=== PATIENT | male | born 1960 | race African-American/Black ===

== ENCOUNTER 2018-12-28 05:07 | Inpatient (IN) | payer MEDICAID ==
[~2018-12-28] VITALS: Ht 170.2 cm; Wt 92.5 kg
[2018-12-28] MEDS ORDERED: ASPIRIN 81MG TABLET PO ONE (06:30)
[2018-12-28 06:59] LABS: BASOPHILS % 0.6 % (0.0-2.0); HEMATOCRIT. 38.5 % (42.0-52.0); HEMOGLOBIN. 12.8 g/dL (14.0-18.0); LYMPHOCYTES % 21.2 % (20.0-50.0); MEAN CORPUSCULAR HEMOGLOBIN 28.3 pg (28.0-32.0); MEAN CORPUSCULAR VOLUME 85.1 fL (80.0-94.0); MEAN PLATELET VOLUME 7.8 fl (7.4-10.4); MONOCYTES % 7.2 % (2.0-8.0); PLATELET 255 x1000/uL (130-400); RED BLOOD CELL COUNT 4.52 mill/uL (4.7-6.1); RED CELL DISTRIBUTION WIDTH 15.9 % (11.6-14.6)
[2018-12-28 07:04] LABS: CHLORIDE 107 mEq/L (98-107)
[2018-12-28 07:30] LABS: D-DIMER 1.52 mg/L FEU (<0.50); INR 1.2; PARTIAL THROMBOPLASTIN TIME 27.4 sec (23.4-31.0); PROTHROMBIN TIME 12.1 sec (9.6-11.0)
[2018-12-28] MEDS ORDERED: MAGNESIUM/ALUMINUM HYDROXIDE/SIMETHICONE 30ML UDC PO PRN (09:15)
[2018-12-28] MEDS ORDERED: DIPHENHYDRAMINE 50MG/ML VIAL IV PRN (09:15)
[2018-12-28] MEDS ORDERED: IPRATROPIUM/ALBUTEROL 0.5-3(2.5)MG/3ML NEB INH PRN (09:15)
[2018-12-28] MEDS ORDERED: DOCUSATE SODIUM 100MG CAPSULE PO PRN (09:15)
[2018-12-28] MEDS ORDERED: ONDANSETRON HCL 4MG/2ML INJ IV PRN (09:15)
[2018-12-28] MEDS ORDERED: ACETAMINOPHEN 325MG TABLET PO PRN (09:15)
[2018-12-28] MEDS ORDERED: HYDROCODONE/ACETAMINOPHEN 5/325MG TABLET PO PRN (09:15)
[2018-12-28] MEDS ORDERED: GUAIFENESIN 200MG/10ML SUGAR FREE UDC PO PRN (09:15)
[2018-12-28] MEDS ORDERED: CLONIDINE 0.1MG TABLET PO PRN (09:15)
[2018-12-28 09:22] LABS: PHOSPHORUS 3.8 mg/dL (2.5-4.9)
[2018-12-28] MEDS ORDERED: DEXTROSE 50% WATER 50ML SYRINGE IV PRN (09:30)
[2018-12-28] MEDS ORDERED: FUROSEMIDE 40MG/4ML VIAL IV ONE (09:45)
[2018-12-28] MEDS ORDERED: ENOXAPARIN 40MG/0.4ML SYR SUBCUT NR (09:45)
[2018-12-28] MEDS ORDERED: NITROGLYCERIN OINT 1GM/INCH UDPKT TD ONE (09:45)
[2018-12-28] MEDS ORDERED: IOHEXOL-350 100 ML BOTTLE ONE (10:29)
[2018-12-28 11:30] VITALS: BP 168/92
[2018-12-28 12:00] VITALS: BP 168/92
[2018-12-28] MEDS: BLOOD SUGAR DIAGNOSTIC STRIP TEST SCH ×3 (12:10→21:03)
[2018-12-28] MEDS: INSULIN LISPRO 100 UNITS/ML SUBCUT SCH ×3 (12:40→21:26)
[2018-12-28] MEDS ORDERED: CARV6.2548 MT (14:48)
[2018-12-28] MEDS ORDERED: TADA5TAB MT (14:48)
[2018-12-28] MEDS ORDERED: FURO40TA5 MT (14:48)
[2018-12-28] MEDS ORDERED: ASPI-1159 MT (14:48)
[2018-12-28] MEDS ORDERED: METF-414 MT (14:48)
[2018-12-28] MEDS ORDERED: ALBU18HF2 IH (14:48)
[2018-12-28] MEDS ORDERED: SPIR25TA6 MT (14:48)
[2018-12-28] MEDS ORDERED: LISI-604 MT (14:48)
[2018-12-28] MEDS ORDERED: ATOR20TA65 PO (14:48)
[2018-12-28 16:00] VITALS: BP 140/96
[2018-12-28] MEDS: NITROGLYCERIN OINT 1GM/INCH UDPKT TD SCH ×2 (16:03→21:08)
[2018-12-28 16:20] LABS: CREATINE KINASE 84 IU/L (39-308)
[2018-12-28 16:21] LABS: CREATINE KINASE MB FRACTION < 1.0 ng/mL (0.5-3.6)
[2018-12-28] MEDS: POTASSIUM CHLORIDE 20MEQ TABLET SR PO SCH (18:05)
[2018-12-28] MEDS: FUROSEMIDE 100MG/10ML VIAL IVP SCH (18:12)
[2018-12-28 20:00] VITALS: BP 129/81
[2018-12-28] MEDS: CARVEDILOL 6.25 MG TABLET PO SCH (21:08)
[2018-12-29] VITALS: BP 105/59
[2018-12-29 01:22] LABS: CREATINE KINASE 82 IU/L (39-308)
[2018-12-29 01:23] LABS: CREATINE KINASE MB FRACTION < 1.0 ng/mL (0.5-3.6)
[2018-12-29 04:00] VITALS: BP 113/65
[2018-12-29] MEDS: NITROGLYCERIN OINT 1GM/INCH UDPKT TD SCH ×2 (06:07→12:38)
[2018-12-29] MEDS: INSULIN LISPRO 100 UNITS/ML SUBCUT SCH ×3 (06:11→17:06)
[2018-12-29] MEDS: BLOOD SUGAR DIAGNOSTIC STRIP TEST SCH ×3 (06:11→16:51)
[2018-12-29 06:23] LABS: CHLORIDE 106 mEq/L (98-107)
[2018-12-29 06:30] LABS: BASOPHILS % 0.4 % (0.0-2.0); EOSINOPHILS % 2.8 % (0.0-5.0); HEMATOCRIT. 38.4 % (42.0-52.0); LYMPHOCYTES % 28.4 % (20.0-50.0); MEAN CORPUSCULAR HEMOGLOBIN 28.9 pg (28.0-32.0); MEAN CORPUSCULAR VOLUME 85.3 fL (80.0-94.0); MEAN PLATELET VOLUME 8.2 fl (7.4-10.4); MONOCYTES % 9.2 % (2.0-8.0); NEUTROPHILS % 59.2 % (40.0-76.0); PLATELET 264 x1000/uL (130-400); RED CELL DISTRIBUTION WIDTH 15.9 % (11.6-14.6)
[2018-12-29 06:41] LABS: LDL CHOLESTEROL 92 mg/dL (5-100)
[2018-12-29 06:43] LABS: HDL CHOLESTEROL 37 mg/dL (40-59)
[2018-12-29 08:00] VITALS: BP 109/66
[2018-12-29] MEDS: POTASSIUM CHLORIDE 20MEQ TABLET SR PO SCH ×2 (08:27→16:30)
[2018-12-29] MEDS: FUROSEMIDE 100MG/10ML VIAL IVP SCH ×2 (08:27→16:31)
[2018-12-29] MEDS: CARVEDILOL 6.25 MG TABLET PO SCH (08:28)
[2018-12-29] MEDS ORDERED: ASPIRIN 81MG EC TABLET PO SCH (09:00)
[2018-12-29] MEDS ORDERED: ENOXAPARIN 40MG/0.4ML SYR SUBCUT SCH (09:00)
[2018-12-29] MEDS ORDERED: SPIRONOLACTONE 25MG TABLET PO SCH (09:00)
[2018-12-29 12:00] VITALS: BP 111/70
[2018-12-29] MEDS ORDERED: POTASSIUM CHLORIDE 20MEQ TABLET SR PO NR (12:30)
[2018-12-29] MEDS: IPRATROPIUM/ALBUTEROL 0.5-3(2.5)MG/3ML NEB INH SCH ×2 (13:00→17:09)
[2018-12-29 15:43] VITALS: BP 110/70
[2018-12-29 15:47] VITALS: BP 110/70
[2018-12-30] MEDS ORDERED: ENOXAPARIN 30MG/0.3ML SYR SUBCUT SCH (09:00)
== END 2018-12-29 19:00 | disposition home or self-care (01) | DRG 133 ==
LOC: ER 05:07 → 8WST 09:44 → EDBEDREQ 09:51 → ENRESERV 09:59
PROVIDERS: ADMIT Internal Medicine; ATTEND Internal Medicine
DX: J96.00 Acute respiratory failure, unspecified whether with hypoxia or hypercapnia (principal); I50.43 Acute on chronic combined systolic (congestive) and diastolic (congestive) heart failure; E44.1 Mild protein-calorie malnutrition; E83.42 Hypomagnesemia; I42.9 Cardiomyopathy, unspecified; I11.0 Hypertensive heart disease with heart failure; D64.9 Anemia, unspecified; E11.9 Type 2 diabetes mellitus without complications; M94.0 Chondrocostal junction syndrome [Tietze]; E66.9 Obesity, unspecified; E87.6 Hypokalemia; N52.9 Male erectile dysfunction, unspecified; Z72.0 Tobacco use; Z79.84 Long term (current) use of oral hypoglycemic drugs; Z68.32 Body mass index [BMI] 32.0-32.9, adult; Z87.01 Personal history of pneumonia (recurrent); Z79.899 Other long term (current) drug therapy; Z86.73 Personal history of transient ischemic attack (TIA), and cerebral infarction without residual deficits; Z79.82 Long term (current) use of aspirin
CPT/HCPCS: 36415; 71045; 71275; 80061; 82550; 82553; 82962; 83036; 83735; 83880; 84100; 84443; 84484; 85379; 93005; 93970; 96374; 97162; 97166; 99285; J1650; J1815; J1940; J7620; Q9967

== ENCOUNTER 2019-05-07 19:43 | Inpatient (IN) | payer MEDICAID ==
[~2019-05-07] VITALS: Ht 167.6 cm; Wt 90.7 kg
[~2019-05-07 19:43] MED LIST: ALBU18HF2 IH; ASPI-1393 MT; ATOR20TA65 PO; CARV6.2548 MT; FURO40TA5 MT; LISI-604 MT; METF-414 MT; SPIR25TA6 MT; TADA5TAB MT
[2019-05-07] MEDS ORDERED: ACETAMINOPHEN 325MG TABLET PO ONE (21:15)
[2019-05-07] MEDS ORDERED: TETANUS, DIPHTHERIA, PERTUSSIS VAC/PF 0.5ML (>7YR OLD) IM ONE (21:15)
[2019-05-07 21:46] LABS: BASOPHILS % 0.4 % (0.0-2.0); EOSINOPHILS % 2.6 % (0.0-5.0); HEMATOCRIT. 40.2 % (42.0-52.0); HEMOGLOBIN. 13.6 g/dL (14.0-18.0); LYMPHOCYTES % 39.7 % (20.0-50.0); MEAN CORPUSCULAR HEMOGLOBIN 30.1 pg (28.0-32.0); MONOCYTES % 8.5 % (2.0-8.0); NEUTROPHILS % 48.8 % (40.0-76.0); PLATELET 277 x1000/uL (130-400); RED BLOOD CELL COUNT 4.52 mill/uL (4.7-6.1)
[2019-05-07 21:52] LABS: CHLORIDE 108 mEq/L (98-107)
[2019-05-07] MEDS ORDERED: AMPICILLIN SOD/SULBACTAM NA 3 G in SODIUM CHLORIDE 0.9% 100 ML IV SCH (22:00)
[2019-05-08 08:30] VITALS: BP 145/95
[2019-05-08] MEDS ORDERED: DIPHENHYDRAMINE 50MG/ML VIAL IV PRN (09:45)
[2019-05-08] MEDS ORDERED: IPRATROPIUM/ALBUTEROL 0.5-3(2.5)MG/3ML NEB INH PRN (09:45)
[2019-05-08] MEDS ORDERED: ACETAMINOPHEN 325MG TABLET PO PRN (09:45)
[2019-05-08] MEDS ORDERED: GUAIFENESIN 200MG/10ML SUGAR FREE UDC PO PRN (09:45)
[2019-05-08] MEDS ORDERED: CLONIDINE 0.1MG TABLET PO PRN (09:45)
[2019-05-08] MEDS ORDERED: ONDANSETRON HCL 4MG/2ML INJ IV PRN (09:45)
[2019-05-08] MEDS ORDERED: DOCUSATE SODIUM 100MG CAPSULE PO PRN (09:45)
[2019-05-08] MEDS ORDERED: HYDROCODONE/ACETAMINOPHEN 5/325MG TABLET PO PRN (09:45)
[2019-05-08] MEDS ORDERED: MAGNESIUM/ALUMINUM HYDROXIDE/SIMETHICONE 30ML UDC PO PRN (09:45)
[2019-05-08] MEDS ORDERED: ENOXAPARIN 40MG/0.4ML SYR SUBCUT SCH (10:00)
[2019-05-08] MEDS ORDERED: NEOMY SULF/BACITRAC ZN/POLY OINT 28GM TOP SCH (11:00)
[2019-05-08 12:00] VITALS: BP 148/98
[2019-05-08 16:00] VITALS: BP 138/76
[2019-05-08 16:38] VITALS: BP 138/76
== END 2019-05-08 17:30 | disposition home or self-care (01) | DRG 384 ==
LOC: ER 19:43 → 6EST 05-08 00:56 → ENRESERV 05-08 07:30
PROVIDERS: ADMIT Internal Medicine; ATTEND Internal Medicine
DX: S91.119A Laceration without foreign body of unspecified toe without damage to nail, initial encounter (principal); E11.42 Type 2 diabetes mellitus with diabetic polyneuropathy; E11.621 Type 2 diabetes mellitus with foot ulcer; I11.0 Hypertensive heart disease with heart failure; I50.9 Heart failure, unspecified; B35.3 Tinea pedis; F19.10 Other psychoactive substance abuse, uncomplicated; X58.XXXA Exposure to other specified factors, initial encounter; L97.529 Non-pressure chronic ulcer of other part of left foot with unspecified severity; Z86.73 Personal history of transient ischemic attack (TIA), and cerebral infarction without residual deficits; Z87.891 Personal history of nicotine dependence; Z79.84 Long term (current) use of oral hypoglycemic drugs; Z79.82 Long term (current) use of aspirin; Z79.899 Other long term (current) drug therapy; Y93.89 Activity, other specified; Y92.89 Other specified places as the place of occurrence of the external cause; Y99.8 Other external cause status
CPT/HCPCS: 36415; 73630; 80048; 83735; 84100; 90715; 93970; 99285; J0295; J1650; J7050

== ENCOUNTER 2020-05-11 10:20 | Inpatient (IN) | payer MEDICAID ==
[~2020-05-11] VITALS: Ht 170.2 cm; Wt 111.1 kg
[~2020-05-11 10:20] MED LIST changes: -ASPI-1393 MT; +ASPI-1497 MT
[2020-05-11] MEDS ORDERED: SODIUM CHLORIDE 0.9% 250 ML IV ONE (10:45)
[2020-05-11 11:30] LABS: CLARITY URINE TURBID (CLEAR); COLOR URINE YELLOW (YELLOW); KETONES URINE NEGATIVE (NEGATIVE); LEUKOCYTE ESTERASE URINE 2+ (NEGATIVE); NITRITE URINE NEGATIVE (NEGATIVE); OCCULT BLOOD URINE 2+ (NEGATIVE); PROTEIN URINE 1+ (NEGATIVE); SPECIFIC GRAVITY URINE 1.021 (1.005-1.030)
[2020-05-11 11:42] LABS: BASOPHILS % 0.5 % (0.0-2.0); EOSINOPHILS % 0.2 % (0.0-5.0); HEMOGLOBIN. 12.9 g/dL (14.0-18.0); LYMPHOCYTES % 11.3 % (20.0-50.0); MEAN CORPUSCULAR HEMOGLOBIN 28.5 pg (28.0-32.0); MEAN CORPUSCULAR VOLUME 86.1 fL (80.0-94.0); MEAN PLATELET VOLUME 7.9 fl (7.4-10.4); MONOCYTES % 6.9 % (2.0-8.0); NEUTROPHILS % 81.1 % (40.0-76.0); PLATELET 404 x1000/uL (130-400); RED BLOOD CELL COUNT 4.53 mill/uL (4.7-6.1); RED CELL DISTRIBUTION WIDTH 13.4 % (11.6-14.6)
[2020-05-11 11:48] LABS: CHLORIDE 101 mEq/L (98-107)
[2020-05-11 11:50] LABS: INR 1.2; PROTHROMBIN TIME 12.4 sec (9.6-11.0)
[2020-05-11] MEDS ORDERED: SODIUM CHLORIDE 0.9% 1000ML BAG (SEPSIS BOLUS) IV ONE (12:15)
[2020-05-11] MEDS ORDERED: PIPERACILLIN/TAZOBACTAM 3.375GM/50ML PREMIX IV ONE (12:15)
[2020-05-11] MEDS ORDERED: CLINDAMYCIN 600 MG in DEXTROSE 5% WATER 50 ML IV ONE (13:00)
[2020-05-11] MEDS ORDERED: VANCOMYCIN 1 G PREMIX 200 ML IV SCH ×2 (13:00→23:00)
[2020-05-11] MEDS ORDERED: CLINDAMYCIN 600MG PREMIX 50 ML IV SCH ×2 (13:30→22:00)
[2020-05-11] MEDS ORDERED: IOHEXOL-300 100 ML BOTTLE ONE (13:51)
[2020-05-11] MEDS ORDERED: METOPROLOL TARTRATE 100MG TABLET PO ONE (14:30)
[2020-05-11] MEDS ORDERED: LISINOPRIL 40MG TABLET PO ONE (14:30)
[2020-05-11] MEDS ORDERED: AMLODIPINE 10MG TABLET PO ONE (14:30)
[2020-05-11] MEDS ORDERED: DOCUSATE SODIUM 100MG CAPSULE PO PRN (17:45)
[2020-05-11] MEDS ORDERED: MAGNESIUM/ALUMINUM HYDROXIDE/SIMETHICONE 30ML UDC PO PRN (17:45)
[2020-05-11] MEDS ORDERED: ONDANSETRON HCL 4MG/2ML INJ IV PRN (17:45)
[2020-05-11] MEDS ORDERED: CLINDAMYCIN 600 MG in DEXTROSE 5% WATER 50 ML IV SCH (17:45)
[2020-05-11] MEDS ORDERED: DEXTROSE 50% WATER 50ML SYRINGE IV PRN ×2 (17:45)
[2020-05-11] MEDS ORDERED: DIPHENHYDRAMINE 50MG/ML VIAL IV PRN (17:45)
[2020-05-11] MEDS ORDERED: ACETAMINOPHEN 325MG TABLET PO PRN (17:45)
[2020-05-11] MEDS ORDERED: HYDROCODONE/ACETAMINOPHEN 5/325MG TABLET PO PRN (17:45)
[2020-05-11] MEDS: CLONIDINE 0.1MG TABLET PO PRN (18:29)
[2020-05-11] MEDS: INSULIN LISPRO 100 UNITS/ML SUBCUT SCH ×2 (18:54→21:00)
[2020-05-11] MEDS ORDERED: CEFTRIAXONE SODIUM 1 G/VIAL IV SCH (19:30)
[2020-05-11 20:00] VITALS: BP 148/71
[2020-05-11] MEDS: BLOOD SUGAR DIAGNOSTIC STRIP TEST SCH (21:00)
[2020-05-11 21:30] VITALS: BP 148/71
[2020-05-11] MEDS: ENOXAPARIN 40MG/0.4ML SYR SUBCUT SCH (22:16)
[2020-05-11] MEDS: CEFTRIAXONE 2 G in DEXTROSE 5% WATER 50 ML IV SCH (22:17)
[2020-05-11] MEDS ORDERED: TAMS-11 PO (22:52)
[2020-05-11] MEDS: CLINDAMYCIN 600MG PREMIX 50 ML IV SCH (23:40)
[2020-05-12] VITALS: BP 177/96
[2020-05-12] MEDS: CLONIDINE 0.1MG TABLET PO PRN (00:26)
[2020-05-12 04:00] VITALS: BP 122/68
[2020-05-12] MEDS: CLINDAMYCIN 600MG PREMIX 50 ML IV SCH (05:06)
[2020-05-12] MEDS ORDERED: CLINDAMYCIN 600MG PREMIX 50 ML IV SCH (06:00)
[2020-05-12] MEDS ORDERED: VANCOMYCIN 750 MG PREMIX 150 ML IV SCH (06:00)
[2020-05-12] MEDS: INSULIN LISPRO 100 UNITS/ML SUBCUT SCH ×4 (06:25→21:26)
[2020-05-12] MEDS: BLOOD SUGAR DIAGNOSTIC STRIP TEST SCH ×4 (06:25→21:00)
[2020-05-12 08:00] VITALS: BP 133/76
[2020-05-12 08:43] LABS: BASOPHILS % 0.3 % (0.0-2.0); EOSINOPHILS % 1.1 % (0.0-5.0); HEMOGLOBIN. 11.8 g/dL (14.0-18.0); LYMPHOCYTES % 14.4 % (20.0-50.0); MEAN CORPUSCULAR HEMOGLOBIN 28.7 pg (28.0-32.0); MEAN CORPUSCULAR VOLUME 85.5 fL (80.0-94.0); MEAN PLATELET VOLUME 8.1 fl (7.4-10.4); MONOCYTES % 8.9 % (2.0-8.0); NEUTROPHILS % 75.3 % (40.0-76.0); PLATELET 366 x1000/uL (130-400); RED BLOOD CELL COUNT 4.09 mill/uL (4.7-6.1)
[2020-05-12] MEDS: PANTOPRAZOLE SODIUM 40 MG/VIAL IV SCH (09:04)
[2020-05-12 12:00] VITALS: BP 165/79
[2020-05-12 12:59] LABS: CHLORIDE 104 mEq/L (98-107)
[2020-05-12 16:00] VITALS: BP 135/75
[2020-05-12] MEDS ORDERED: INSU100I28 SQ (16:58)
[2020-05-12] MEDS: CARVEDILOL 6.25 MG TABLET PO SCH (17:16)
[2020-05-12] MEDS: TAMSULOSIN HCL 0.4MG SR CAPSULE PO SCH (17:17)
[2020-05-12] MEDS ORDERED: INSULIN GLARGINE UD 100 UNITS/ML SYR SUBCUT NR (18:30)
[2020-05-12 20:00] VITALS: BP 154/83
[2020-05-12] MEDS: CEFTRIAXONE 2 G in DEXTROSE 5% WATER 50 ML IV SCH (20:59)
[2020-05-12] MEDS: ENOXAPARIN 40MG/0.4ML SYR SUBCUT SCH (20:59)
[2020-05-12] MEDS ORDERED: ATORVASTATIN CALCIUM 20MG TABLET PO SCH (21:00)
[2020-05-13] VITALS: BP 112/53
[2020-05-13 04:00] VITALS: BP 152/77
[2020-05-13 06:23] LABS: BASOPHILS % 0.2 % (0.0-2.0); EOSINOPHILS % 1.3 % (0.0-5.0); HEMATOCRIT. 39.3 % (42.0-52.0); HEMOGLOBIN. 12.9 g/dL (14.0-18.0); LYMPHOCYTES % 17.5 % (20.0-50.0); MEAN CORPUSCULAR HEMOGLOBIN 28.2 pg (28.0-32.0); MEAN CORPUSCULAR VOLUME 85.8 fL (80.0-94.0); MEAN PLATELET VOLUME 8.2 fl (7.4-10.4); MONOCYTES % 9.1 % (2.0-8.0); NEUTROPHILS % 71.9 % (40.0-76.0); PLATELET 357 x1000/uL (130-400); RED BLOOD CELL COUNT 4.58 mill/uL (4.7-6.1)
[2020-05-13] MEDS: BLOOD SUGAR DIAGNOSTIC STRIP TEST SCH ×3 (07:00→17:05)
[2020-05-13] MEDS: INSULIN LISPRO 100 UNITS/ML SUBCUT SCH ×3 (07:01→17:50)
[2020-05-13 07:09] LABS: CHLORIDE 104 mEq/L (98-107)
[2020-05-13 08:05] VITALS: BP 144/91
[2020-05-13] MEDS ORDERED: LISINOPRIL 20MG TABLET PO SCH (09:00)
[2020-05-13] MEDS ORDERED: FUROSEMIDE 40MG TABLET PO SCH (09:00)
[2020-05-13] MEDS ORDERED: SPIRONOLACTONE 25MG TABLET PO SCH (09:00)
[2020-05-13] MEDS: CARVEDILOL 6.25 MG TABLET PO SCH (09:01)
[2020-05-13] MEDS: PANTOPRAZOLE SODIUM 40 MG/VIAL IV SCH (09:01)
[2020-05-13] MEDS: TAMSULOSIN HCL 0.4MG SR CAPSULE PO SCH ×2 (09:01→17:05)
[2020-05-13] MEDS ORDERED: SODIUM BICARBONATE 4% (2.4MEQ) 5ML VIAL IV ONE (09:20)
[2020-05-13] MEDS ORDERED: FENTANYL CITRATE/PF 50MCG/ML 2ML VIAL ONE (09:20)
[2020-05-13] MEDS ORDERED: LIDOCAINE HCL 1% 20ML VIAL (Pyxis) INJ ONE (09:21)
[2020-05-13 12:00] VITALS: BP 151/87
[2020-05-13] MEDS ORDERED: LEVO500T2 MT (13:01)
[2020-05-13 16:00] VITALS: BP 154/90
[2020-05-13 16:04] VITALS: BP 154/90
[2020-05-13] MEDS ORDERED: ENOXAPARIN 30MG/0.3ML SYR SUBCUT SCH (21:00)
[2020-05-23] MEDS ORDERED: FLUT1DIS3 INH (12:30)
[2020-05-23] MEDS ORDERED: IPRA3AMP9 NEB (12:30)
== END 2020-05-13 19:01 | disposition home or self-care (01) | DRG 720 ==
LOC: ER 10:20 → EDBEDREQ 12:56 → 8WST 14:30 → EDBEDREQ 14:35 → EDBEDREQTM 14:35 → ENRESERV 19:22 → 6EST 05-13 09:47
PROVIDERS: ADMIT Internal Medicine; ATTEND Internal Medicine
DX: A41.9 Sepsis, unspecified organism (principal); D64.9 Anemia, unspecified; E11.65 Type 2 diabetes mellitus with hyperglycemia; E78.5 Hyperlipidemia, unspecified; E87.1 Hypo-osmolality and hyponatremia; I11.0 Hypertensive heart disease with heart failure; I50.9 Heart failure, unspecified; N39.0 Urinary tract infection, site not specified; N41.2 Abscess of prostate; K80.20 Calculus of gallbladder without cholecystitis without obstruction; N40.1 Benign prostatic hyperplasia with lower urinary tract symptoms; D72.829 Elevated white blood cell count, unspecified; Z87.01 Personal history of pneumonia (recurrent); Z86.73 Personal history of transient ischemic attack (TIA), and cerebral infarction without residual deficits; Z79.82 Long term (current) use of aspirin; Z79.84 Long term (current) use of oral hypoglycemic drugs; Z79.899 Other long term (current) drug therapy; E43 Unspecified severe protein-calorie malnutrition
CPT/HCPCS: 36415; 74177; 76870; 77012; 80048; 80053; 81003; 82962; 83036; 83605; 85025; 86140; 87077; 87186; 93970; 93976; 99291; C9113; J0696; J1650; J1815; J2543; J3010; J3370; J3490; J7030; J7060; Q9967

== ENCOUNTER 2022-09-06 20:21 | Inpatient (IN) | payer MEDICAID, OTHER ==
[~2022-09-06] VITALS: Ht 175.3 cm; Wt 94.3 kg
[~2022-09-06 20:21] MED LIST changes: +FLUT1DIS3 INH; +INSU100I28 SQ; +IPRA3AMP9 NEB; -LISI-604 MT; +LISI20TA31 MT; +TAMS-11 PO
[2022-09-06] MEDS ORDERED: FUROSEMIDE 40MG/4ML VIAL IV ONE (21:00)
[2022-09-06 21:56] LABS: BASOPHILS % 0.5 % (0.0-2.0); EOSINOPHILS % 1.1 % (0.0-5.0); HEMATOCRIT. 42.9 % (42.0-52.0); HEMOGLOBIN. 14.3 g/dL (14.0-18.0); LYMPHOCYTES % 13.1 % (20.0-50.0); MEAN CORPUSCULAR HEMOGLOBIN 29.4 pg (28.0-32.0); MEAN CORPUSCULAR VOLUME 88.3 fL (80.0-94.0); MEAN PLATELET VOLUME 8.3 fl (7.4-10.4); MONOCYTES % 6.1 % (2.0-8.0); NEUTROPHILS % 79.2 % (40.0-76.0); PLATELET 235 x1000/uL (130-400); RED BLOOD CELL COUNT 4.86 mill/uL (4.7-6.1)
[2022-09-06 22:01] LABS: CHLORIDE 107 mEq/L (98-107)
[2022-09-06 22:03] LABS: INR 1.1; PROTHROMBIN TIME 11.8 sec (9.6-11.0)
[2022-09-06 22:13] LABS: ETHANOL BLOOD < 10 mg/dL
[2022-09-07] MEDS ORDERED: ONDANSETRON HCL 4MG/2ML INJ IV PRN (09:15)
[2022-09-07] MEDS ORDERED: ACETAMINOPHEN 325MG TABLET PO PRN (09:15)
[2022-09-07] MEDS ORDERED: DEXTROSE 50% WATER 50ML SYRINGE IV PRN (09:15)
[2022-09-07] MEDS: AMLODIPINE 10MG TABLET PO SCH (09:29)
[2022-09-07] MEDS: HYDRALAZINE HCL 50MG TABLET PO SCH ×2 (09:29→22:37)
[2022-09-07] MEDS: BLOOD SUGAR DIAGNOSTIC STRIP TEST SCH ×3 (12:17→21:00)
[2022-09-07] MEDS: INSULIN LISPRO 100 UNITS/ML SUBCUT SCH ×3 (12:17→22:38)
[2022-09-07] MEDS: FUROSEMIDE 40MG/4ML VIAL IVP SCH (17:44)
[2022-09-07 21:00] VITALS: BP 150/100
[2022-09-07] MEDS ORDERED: ATORVASTATIN CALCIUM 40MG TABLET PO SCH (21:00)
[2022-09-08] VITALS: BP 139/88
[2022-09-08 04:00] VITALS: BP 144/91
[2022-09-08 08:00] VITALS: BP 137/86
[2022-09-08] MEDS: BLOOD SUGAR DIAGNOSTIC STRIP TEST SCH ×2 (08:00→12:40)
[2022-09-08] MEDS: AMLODIPINE 10MG TABLET PO SCH (08:50)
[2022-09-08] MEDS: HYDRALAZINE HCL 50MG TABLET PO SCH (08:51)
[2022-09-08] MEDS: FUROSEMIDE 40MG/4ML VIAL IVP SCH (08:51)
[2022-09-08] MEDS: INSULIN LISPRO 100 UNITS/ML SUBCUT SCH ×2 (08:53→15:23)
[2022-09-08] MEDS ORDERED: ASPIRIN 81MG TABLET PO SCH (09:00)
[2022-09-08 12:00] VITALS: BP_SYST 108; BP_SYST 109; BP_DIAS 70; BP_DIAS 80
[2022-09-08] MEDS ORDERED: ATOR20TA65 PO (13:07)
[2022-09-08] MEDS ORDERED: TAMS-11 PO (13:07)
[2022-09-08] MEDS ORDERED: FURO40TA5 MT (13:07)
[2022-09-08] MEDS ORDERED: CARV6.2548 MT (13:07)
[2022-09-08] MEDS ORDERED: LANTUSUD SUBCUT (13:07)
[2022-09-08] MEDS ORDERED: ASPI-1497 MT (13:07)
[2022-09-08] MEDS ORDERED: LISI20TA31 MT (13:07)
[2022-09-08 15:05] VITALS: BP 121/72
== END 2022-09-08 16:15 | disposition home or self-care (01) | DRG 194 ==
LOC: ER 20:21 → MICUSO 23:39 → EDBEDREQ 23:41 → 7WST 09-07 21:10
PROVIDERS: ADMIT Internal Medicine; ATTEND Internal Medicine
PROC: 5A09357 Assistance with Respiratory Ventilation, Less than 24 Consecutive Hours, Continuous Positive Airway Pressure (ICD-10-PCS; principal; 2022-09-06)
DX: I11.0 Hypertensive heart disease with heart failure (principal); E44.0 Moderate protein-calorie malnutrition; I42.9 Cardiomyopathy, unspecified; E11.65 Type 2 diabetes mellitus with hyperglycemia; I50.23 Acute on chronic systolic (congestive) heart failure; Z20.822 Contact with and (suspected) exposure to COVID-19; I16.0 Hypertensive urgency; I25.10 Atherosclerotic heart disease of native coronary artery without angina pectoris; N40.0 Benign prostatic hyperplasia without lower urinary tract symptoms; Z95.5 Presence of coronary angioplasty implant and graft; Z91.14 Patient's other noncompliance with medication regimen; Z86.73 Personal history of transient ischemic attack (TIA), and cerebral infarction without residual deficits; Z68.30 Body mass index [BMI] 30.0-30.9, adult
CPT/HCPCS: 36415; 71045; 80053; 80320; 82962; 83880; 84484; 85025; 87426; 93005; 93306; 99291; J1815; J1940; G0480